=== PATIENT | male | born 2000 | race African-American/Black ===

== ENCOUNTER 2024-08-27 08:46 | Emergency (ER) | payer MEDICAID, SELFPAY ==
--- NOTE | ~2024-08-27 | XR_ITS ---
EXAMINATION: XR ANKLE, RIGHT CLINICAL INFORMATION: INJURED PLAYING VOLLEYBALL COMPARISON: None available. TECHNIQUE: AP, lateral, and mortise views of the right ankle. FINDINGS: Mild lateral malleolar soft tissue swelling. Ankle mortise and subtalar joints are normal. No visible acute fracture, dislocation or lytic process seen. XR/XR ankle RT min 3V IMPRESSION: Mild lateral malleolar soft tissue swelling. No visible acute fracture or dislocation. Electronically signed by: Hector Damon MD 08/27/2024 09:15 AM EDT
[2024-08-27 08:52] VITALS: BP 100/51; PULSE 79; RESP 16; TEMP 36.6; O2SAT 97; BMI 23.6
--- NOTE | 2024-08-27 10:19 | ED_ITS ---
HPI - Extremity Injury (Lower) General Chief Complaint: Extremity Injury, Lower Stated Complaint: Ankle injury Time Seen by Provider: 08/27/24 10:13 Source: patient Mode of arrival: ambulatory Limitations: no limitations History of Present Illness HPI Narrative: This is 23 years old presented ambulatory to the emergency department complaining of right ankle pain he was playing volleyball yesterday he sprained the ankle MD complaint: ankle injury Onset (ago): day(s) (1) Injury: Right: ankle Type of Injury: inversion Place: street/outdoors Severity: moderate Relieving factors: nothing Exacerbating factors: weight bearing Context: jumping Associated symptoms: swelling Other symptoms: none Related Data Allergies Allergy/AdvReac Type Severity Reaction Status Date / Time No Known Allergies Allergy Verified 08/27/24 08:54 Review of Systems Review of Systems: Yes all other systems are reviewed and are negative REPLACED BY [facility] Past Medical History Attestation statement: The following information was validated with the patient. REPLACED BY [facility] Narrative: none Social History Social History Advance Directives: Yes Advance Directives Information Provided: Yes Advance Directives on File: No Physical Exam Vital Signs: Vital Signs: Last Vital Signs Temp 98 F 08/27/24 08:52 Pulse 79 08/27/24 08:52 Resp 16 08/27/24 08:52 BP 100/51 L 08/27/24 08:52 Pulse Ox 97 08/27/24 08:52 O2 Del Method Room Air 08/27/24 08:52 BMI result Body Mass Index 23.6 No acute distress Const: General: cooperative Nutritional Appearance: well nourished Orientation/consciousness: patient oriented x3 HEENT: Head: Yes normal to inspection General nose exam: Normal external nose present Face and sinus: Yes normal facial exam Teeth and gingiva: dentition normal Neck: Neck: Yes normal visual inspection Chest: Chest palpation & inspection: normal inspection of the chest Resp: Effort & Inspection: normal respiratory effort Auscultation: clear to auscultation bilaterally Cardio: Jugular venous distension: no JVD Rate: regular rate Rhythm: regular rhythm GI: Inspection: Yes normal to inspection Palpation (GI): Soft to palpation and not firm Percussion: Yes normal to percussion Neuro: General: patient oriented x3 Extrem: Other: Examination lower extremities shows swelling in the tenderness of the right ankle no deformity good pulses Medical Decision Making Medical Decision Making [facility] Narrative: Patient is here complaining of right ankle pain after an injury yesterday playing volleyball we will obtain x-ray Differential Diagnosis Differential Diagnoses: The differential diagnosis associated with the presentation includes Fracture/dislocation Admission/Observation Consideration of admission/observation: Escalation of care including admission/observation considered Independent Interpretation I performed an independent interpretation of an: Plain X-Ray Interpretation: No fracture Radiology Impression Discussion of test interpretation with radiology: I have reviewed the radiologist's reading. Radiologist Impression: No fracture no dislocation Discharge Plan Discharge Clinical Impression: Ankle sprain and strain Patient Disposition: Home, Self-Care Instructions: Ankle Sprain (DC) Additional Instructions: Rest keep you ankle elevated, ice ,ibuprofen for pain Referrals: Gume Ortiz MD [Physician] - 2 days Print Language: Algerian
[2024-08-27 10:36] VITALS: BP 100/51; PULSE 79; RESP 16; TEMP 36.6; O2SAT 97
== END 2024-08-27 10:36 | disposition home or self-care (01) ==
PROVIDERS: Emergency Provider Emergency Medicine
DX: S93.401A Sprain of unspecified ligament of right ankle, initial encounter (principal); X50.1XXA Overexertion from prolonged static or awkward postures, initial encounter; X50.3XXA Overexertion from repetitive movements, initial encounter; M25.571 Pain in right ankle and joints of right foot; Y93.68 Activity, volleyball (beach) (court); Y93.9 Activity, unspecified; Y92.318 Other athletic court as the place of occurrence of the external cause; Y99.8 Other external cause status
CPT/HCPCS: 29515; 73610; 99282; 99283; 99284